=== PATIENT | male | born 1975 | race Two or more races ===

== ENCOUNTER 2022-11-13 07:00 | Day surgery (SDC) | payer OTHER | END 2022-11-13 10:45 | disposition home or self-care (01) | LOC: AMB-ENDOS 07:00 | PROVIDERS: ATTEND Surgery | DX: D12.7 Benign neoplasm of rectosigmoid junction (principal); K59.09 Other constipation; K57.30 Diverticulosis of large intestine without perforation or abscess without bleeding; Z20.822 Contact with and (suspected) exposure to COVID-19 ==